=== PATIENT | female | born 1980 | race Caucasian/White ===

== ENCOUNTER → 2019-08-24 14:17 | Outpatient (ROUT) | payer OTHER, SELFPAY ==
[2019-08-24 14:33] LABS: Add Manual Diff / Slide Review NO; Basophils Absolute Auto 100 /uL (0-100); Basophils Percent Auto 0.4 % (0-2); Eosinophils Absolute Auto 200 /uL (0-450); Eosinophils Percent Auto 1.4 % (2-4); Hematocrit 30.7 % (36-46); Hemoglobin 10.7 g/dL (12.0-16.0); Lymphocytes Absolute Auto 1700 /uL (1100-4500); Lymphocytes Percent Auto 13.4 % (25-40); Mean Corpuscular Hemoglobin 31.4 PG (26-34); Mean Corpuscular Volume 89.8 fL (80-100); Monocytes Absolute Auto 1000 /uL (0-900); Monocytes Percent Auto 7.9 % (3-14); Neutrophils Absolute Auto 9600 /uL (1500-7000); Neutrophils Percent Auto 76.9 % (50-75); Platelet Count 186 X10^3/uL (150-400); Red Blood Cell Count 3.42 X10^6/uL (4.0-5.2); Red Cell Distribution Width 13.6 % (11.6-14.8); White Blood Cell Count 12.5 X10^3/uL (4.5-11.0)
[2019-08-24 14:41] LABS: HEMOLYSIS < 15 (0-50); Iron 69 ug/dL (37-170)
[2019-08-24 14:51] LABS: Percent Iron Saturation 14 % (15-50); Total Iron Binding Capacity 482 ug/dL (265-497); Transferrin 389 mg/dL (206-381)
[2019-08-24 15:19] LABS: Ferritin 16 ng/mL (6-137)
== END ==
PROVIDERS: Visit Provider Nurse Practitioner Obstetrics & Gynecology
DX: O09.513 Supervision of elderly primigravida, third trimester (principal)
CPT/HCPCS: 82728; 83540; 83550; 85025

== ENCOUNTER → 2019-09-19 14:32 | Outpatient (CLI) | payer OTHER, SELFPAY ==
--- NOTE | 2019-09-19 | DI.US.S_ITS ---
PROCEDURE: US OB LIMITED INDICATIONS: GROWTH AND BPP OUTSIDE/PRIOR DATING DATA: Last menstrual period (LMP): 01/11/19. LMP-based estimated date of delivery (NATALI): 10/18/19 . First dating scan (date and location): Unknown . Estimated date of delivery (NATALI) from first dating scan: Unknown . TECHNIQUE: Real-time scanning was performed of the fetus for biophysical profile, with image documentation. Color and pulse Doppler interrogation was also performed of the umbilical artery near its insertion into the placenta. Endovaginal scanning: Not performed COMPARISON: None. FINDINGS: General: A single living intrauterine gestation is present. Presentation: Vertex. Placenta: Placental position is anterior , without previa. Amniotic fluid index: 11.4 cm, normal range is 5-24 cm. heart rate: 124 beats per minute. Estimated gestational age from initial scan: Not applicable . Composite gestational age 35 weeks 4 days. Biparietal diameter measures 8.8 cm, 35 weeks 3 days Head circumference measures 32.4 cm, 36 weeks 5 days Abdominal circumference measures 31.1 cm, 35 weeks 0 days Femur length measures 6.8 cm, 34 weeks 6 days Biophysical profile: Tone: 2 points. Movement: 2 points. Respiration: 2 new points. Largest pocket of fluid: 2 points. IMPRESSION: Single living intrauterine fetus in vertex presentation. Composite gestational age measures 35 weeks 4 days , concordant with the reported LMP. Normal biophysical profile Normal YANE Dictated by: Jonathan Galvez M.D. on 09/20/2019 at 12:47 Approved by: Jonathan Galvez M.D. on 09/20/2019 at 12:51
== END ==
PROVIDERS: Referring Provider Nurse Practitioner Obstetrics & Gynecology; Visit Provider Nurse Practitioner Obstetrics & Gynecology
DX: Z36.89 Encounter for other specified antenatal screening (principal); Z3A.35 35 weeks gestation of pregnancy
CPT/HCPCS: 76815; 76819

== ENCOUNTER → 2019-09-22 12:08 | Outpatient (ROUT) | payer OTHER, SELFPAY | PROVIDERS: Visit Provider Nurse Practitioner Obstetrics & Gynecology | DX: Z34.90 Encounter for supervision of normal pregnancy, unspecified, unspecified trimester (principal); Z36.85 Encounter for antenatal screening for Streptococcus B; Z3A.36 36 weeks gestation of pregnancy | CPT/HCPCS: 87081 ==

== ENCOUNTER → 2019-10-04 14:35 | Outpatient (CLI) | payer OTHER, SELFPAY ==
--- NOTE | 2019-10-04 | DI.US.S_ITS ---
PROCEDURE: US OB LIMITED INDICATIONS: EFW OUTSIDE/PRIOR DATING DATA: Last menstrual period (LMP): 01/11/2019. LMP-based estimated date of delivery (NATALI): 10/18/2019 . First dating scan (date and location): 09/19/2019 . Estimated date of delivery (NATALI) from first dating scan: 10/20/2019 . TECHNIQUE: Real-time scanning was performed of the fetus, with image documentation and biometric measurements. Endovaginal scanning: No COMPARISON: [facility], OB LIMITED, 09/19/2019, 14:52. FINDINGS: General: A single living intrauterine gestation is present. Presentation: Vertex. Placenta: Placental position is anterior , without previa. << Amniotic fluid index: 6.3 cm, normal range is 5-24 cm. heart rate: 132 beats per minute. Maternal cervical canal: Not well seen. biometrics: Biparietal diameter: 37 weeks 1 day Head circumference: 38 weeks 2 days Abdominal circumference: 35 weeks 6 days Femur length: 36 weeks Estimated gestational age from initial scan: 37 weeks 5 days Composite gestational age from present scan: 36 weeks 6 days Estimated weight and percentile: 2902 g; 25th percentile Measurement variability for biometric dating: +/- 7 days from 14 weeks to 15 weeks 6 days gestation, +/- 10 days from 16 weeks to 21 weeks 6 days gestation, +/- 2 weeks from 22 weeks to 27 weeks 6 days gestation, +/- 3 weeks for 28 weeks gestation or later. weight reference: 4500 g or EFW >90/95% is considered macrosomia or large for gestational age. EFW <10% is small for gestational age. EFW 5% or less is considered intra-uterine growth restriction. Other: Biophysical profile score of 8 of 8 possible points with 2 points for tone, movement, respiration and largest amniotic fluid pocket. IMPRESSION: 1. Interval growth within normal limits. 2. Amniotic fluid index slightly less than the 5th percentile for age. 3. Normal biophysical profile . Dictated by: Jose Eduardo Sesay [facility] Interpreted: Fatoumata Barragan MD on 10/04/2019 at 16:18 Approved by: Fatoumata Barragan MD, PhD on 10/04/2019 at 17:22
== END ==
PROVIDERS: Referring Provider Nurse Practitioner Obstetrics & Gynecology; Visit Provider Nurse Practitioner Obstetrics & Gynecology
DX: Z36.89 Encounter for other specified antenatal screening (principal); Z3A.36 36 weeks gestation of pregnancy
CPT/HCPCS: 76815; 76819

== ENCOUNTER 2019-10-16 21:44 | Outpatient (CLI) | payer OTHER, SELFPAY ==
--- NOTE | 2019-10-16 21:48 | P.TNLD_ITS ---
Visit Information Visit Information Date of evaluation: 10/16/19 Primary OB Provider: Julieta Squires On-call OB Provider: Edna Cowart Reason for Evaluation: Yes rupture of membranes Comments/Additional reasons for admission: 39YO @ [id number] by LMP and early US presents for evaluation of PROM tonight @2030. Has continued to leak clear fluid. Mild, irregular contractions rated at 2/10. Lots of FM. Vital Signs Vital Signs: BP 118/68, HR-79, T97.1 [facility] Medical History (Updated 10/16/19 @ 22:10 by Julieta Squires CNM) 39 weeks gestation of (Acute) Elderly primigravida in third trimester (Inactive) Gestational diabetes, diet controlled (Inactive) Social History (Updated 10/16/19 @ 21:52 by Julieta Squires CNM) marital status: household members: spouse lives independently: Yes housing: house pets and animals: Yes education level: master's degree occupational status: employed current occupational exposures/hazards: No Review of Systems Review of Systems ROS: Yes All systems reviewed with the patient and are negative except as otherwise documented Exam Vital Signs (past 8 hours): See above Uterus Location (Fundal Height): 38 Presentation: vertex Amniotic Fluid: clear Evaluation Evaluation Baseline heart rate: 120 Variability: Moderate (11-25) monitor accelerations: Absent Contraction Frequency (minutes): 4 Uterine Contraction Intensity: Mild Category of Tracing: Reactive Non-invasive Membranes Rupture Test: positive Comments: CE deferred Diagnosis, Plan/Disposition Final Diagnosis (1) Elderly primigravida in third trimester: Status: Inactive (2) Gestational diabetes, diet controlled: Status: Inactive Problem details: Well controlled (3) 39 weeks gestation of : Status: Inactive (4) PROM (premature rupture of membranes): Status: Acute Problem details: Counseled on options for active vs expectant management of PROM. Pt elects 12 hours of expectant management. Will return no later than 0840 tomorrow morning, agreeable to labor augmentation if not in labor at that time. Reviewed warning sx and when to return sooner. COVID testing completed in anticipation of pending admission.
[2019-10-17 00:29] LABS: COVID19 -Nasal RAPID Negative (Negative)
[2019-10-17 05:38] VITALS: BP 118/68
== END 2019-10-16 22:30 | disposition home or self-care (01) ==
LOC: LABOR 22:02 → OB 10-18 11:06
PROVIDERS: Referring Provider Nurse Practitioner Obstetrics & Gynecology; Visit Provider Nurse Practitioner Obstetrics & Gynecology
DX: O24.410 Gestational diabetes mellitus in pregnancy, diet controlled (principal)
CPT/HCPCS: 59025; 84112; 87635; G0378; G0379

== ENCOUNTER 2019-10-17 08:55 | Inpatient (IN) | payer OTHER, SELFPAY ==
--- NOTE | 2019-10-17 09:11 | P.HPOB_ITS ---
OB HPI Date/Time Date of admission: 10/17/19 Date Patient Seen: 10/17/19 Time Patient Seen: 09:00 History of Present Condition Chief complaint: MATERNITY : 2 Para: 0 Estimated Date of Delivery: 10/18/19 Estimated Gestational Age (weeks): 39.6 Narrative: Lorene Willis is a 39 year old female @ [id number] by LMP and early US who presents for augmentation of labor/PROM. PROM occurred at 2030 last night for a moderate amount of clear fluid. She was seen in triage w/ ROM confirmed and RNST. Patient elected 12 hours of expectant management of labor. She contracted uncomfortably most of the night, but contractions eased this morning. Has had some bloody show and continues to leak clear fluid w/ good FM. Agreeable to pitocin augmentation. , Chelsea, is present and supportive. History of Present care: good care and pounds weight gain (27) Dating criteria: LMP confirmed by 1st trimester US Ultrasounds: normal mid trimester US Obstetrical complications: gestational diabetes (GDMA1) Medical complications: other (Advanced maternal age) Preadmission Labs Blood type: O (+) positive -: Antibody screen: negative, HBsAG: negative, HIV: negative and RPR/VDLR: negative -: Chlamydia screen: not detected and Gonorrhea screen: not detected -: Rubella: immune and Varicella: immune HCT: 30.7 HCAB: negative PAP: Normal Cell-free DNA: NT US normal, MsAFP-negative, cfDNA-negative/female 1 hr GTT: 170 3 hr GTT: 3 hr (80/227/215/185) Prior (ies) History: 01/11/2019:Early SAB, also LMP for current Evaluation Evaluation Baseline heart rate: 120 Variability: Moderate (11-25) monitor accelerations: Absent monitor decelerations: Absent Contraction Frequency (minutes): 15 Uterine Contraction Intensity: Mild Category of Tracing: Reactive Non-invasive Membranes Rupture Test: positive (10/16/19 @ 2200) [facility] Medical History 39 weeks gestation of (Acute) Elderly primigravida in third trimester (Inactive) Gestational diabetes, diet controlled (Inactive) Social History marital status: household members: spouse lives independently: Yes housing: house pets and animals: Yes education level: master's degree occupational status: employed current occupational exposures/hazards: No Meds Home Medications and Allergies Home Medications Medication Instructions Recorded Confirmed Type Multi 10/17/19 History ferrous sulfate [Slow Fe] mg PO 10/17/19 History Allergies Allergy/AdvReac Type Severity Reaction Status Date / Time No Known Drug Allergies Allergy Unverified 10/17/19 09:26 Review of Systems Review of Systems ROS: Yes All systems reviewed with the patient and are negative except as otherwise documented Exam Vital Signs (past 8 hours): BP 110/67, HR82, T36.4C Temporal Uterus Location (Fundal Height): 38 Presentation: vertex Estimated Weight (lbs): 6 Amniotic Fluid: clear Objective Labs Labs: CBC, T&S pending Assessment and Plan Assessment and Plan Assessment and Plan narrative: Admit, routine orders w/ CBC, T&S and begin pitocin agumentation. Labor support PRN. CE deferred as last CE in clinic was 1.5/70%/-3 and patient has since lost mucus plug and had bloody show w/ contractions and PROM. Will reassess in 4 hours and perform CE after 2 hours after strong contractions obtained. Will check random BGs minimally/as indicated since BGs have been well controlled throughout . Labor support PRN. Time Spent with Patient Total time spent with greater than 50% in coordination of care (as documented) at patient's floor/unit and/or counseling patient:: 25 - 35 minutes
[2019-10-17] MEDS: LACTATED RINGERS 1,000 ML 100 ML IV ×2 (09:55→19:12)
[2019-10-17 10:07] LABS: Add Manual Diff / Slide Review NO; Basophils Absolute Auto 0 /uL (0-100); Basophils Percent Auto 0.3 % (0-2); Eosinophils Absolute Auto 100 /uL (0-450); Eosinophils Percent Auto 0.7 % (2-4); Hematocrit 31.5 % (36-46); Hemoglobin 10.9 g/dL (12.0-16.0); Lymphocytes Absolute Auto 1300 /uL (1100-4500); Lymphocytes Percent Auto 7.9 % (25-40); Mean Corpuscular HGB Conc 34.7 % (30-36); Mean Corpuscular Hemoglobin 31.5 PG (26-34); Mean Corpuscular Volume 90.8 fL (80-100); Monocytes Absolute Auto 1200 /uL (0-900); Monocytes Percent Auto 7.3 % (3-14); Neutrophils Absolute Auto 13700 /uL (1500-7000); Neutrophils Percent Auto 83.8 % (50-75); Platelet Count 156 X10^3/uL (150-400); Red Blood Cell Count 3.47 X10^6/uL (4.0-5.2); Red Cell Distribution Width 14.6 % (11.6-14.8); White Blood Cell Count 16.3 X10^3/uL (4.5-11.0)
[2019-10-17] MEDS: OXYTOCIN PREMIX 30 UNIT/500 ML PLAST..BAG IV (10:09)
--- NOTE | 2019-10-17 14:02 | PM.OBPNLAB ---
Date/Time Date Patient Seen: 10/17/19 Time Patient Seen: 01:20 Pain Control Pain control: tolerating well Comments: Has been walking and on the ball to encourage labor progression w/ gradula increase in intensity of contractions. Now breathing through regular contractions, occasionally tearful, but coping well. States that contractions became strong around 1315. VSS, see OBIX. Pelvic Exam Amniotic membrane status: Leaking Comments: planned CE @ 1515 Contractions Contractions on admission: irregular Monitor mode: External Pitocin rate (mU/min): 8 Contraction frequency (min): 3 Contraction duration (min): 2 Contraction pattern: Regular Contraction intensity: Strong/Firm Status status: Category l Heart Rate Baseline: 125 Monitor Accelerations: Present Monitor Decelerations: Absent Monitor Variability: Moderate Assessment and Plan Assessment: active labor Plan: continuous present management Comments: Continuous labor support. 1st CE since PROM planned @ 1515. Encourage movement and frequent position changes.
--- NOTE | 2019-10-17 15:24 | PM.OBPNLAB ---
Date/Time Date Patient Seen: 10/17/19 Time Patient Seen: 15:25 Pain Control Pain control: tolerating well Comments: Patient laboring in the tub, breathing through strong contractions VSS, see OBIX. Pelvic Exam Dilation (cm): 4 Effacement (%): 80 station: 0 Amniotic membrane status: Leaking Contractions Contractions on admission: irregular Monitor mode: External Pitocin rate (mU/min): 7 Contraction frequency (min): 3 Contraction duration (min): 1 Contraction pattern: Regular Contraction intensity: Strong/Firm Status status: Category l Heart Rate Baseline: 120 Monitor Accelerations: Present Monitor Decelerations: Variable Monitor Variability: Moderate Comments: poor continuity of FHR tracing d/t maternal positions. RN frequently adjusting monitor. FHR reassuring when tracing well. Assessment and Plan Assessment: active labor Plan: continuous present management Comments: Continue pitocin titration to adequate ctx pattern. Labor support PRN. Reassess in 4 hours or sooner, PRN
--- NOTE | 2019-10-17 18:25 | P.PCNOB_ITS ---
Events: Gestational Diabetes (GDMA1) and Premature Rupture of Membrane (PROM <24 hours) Labor & Delivery Delivery date: 10/17/19 Cervical ripening method: none Induction method: none Delivery augmentation: pitocin Delivery monitor: external uterine and internal FHT Route of delivery: vacuum extraction Indication for instrumentation: nonreassuring FHR tracing L&D Laceration Description: Perineal - 1st Degree Delivery repair: chromic (3.0) Estimated blood loss (mL): 200 Anesthesia type: Other (Nitrous Oxide) Narrative: Patient progressed rapidly from 7cm to complete w/ spontaneous urge to push. FSE was applied. FHR w/ low baseline and recurrent decelerations to 70's w/ pushing that did not improve w/ position changes, pitocin off, O2@10L/NRB mask and 400mL IVFB. Patient made good progress w/ steady descent of vertex. was consulted for VAVB for NRFHT. FSE was removed. Successful VAVB after 2 pop offs. placed on maternal abdomen for drying and stimulation. Apgars 8/9. Pitocin was started at 300mL/hr for AMTSL. After cessation of pulsation, the cord was double clamped by CNM and cut by FOB. Hospital cord blood sample was collected. Gentle cord traction and single ma ternal push led to spontaneous, Schultze delivery of an apparently intact placenta, membranes and 3VC. Fundus immediately firm and bleeding minimal. Small 1st degree perineal laceration was repaired under 1% lidocaine local w/ 3.0 Chromic in the usual fashion. QBL 200mL. Both mother and baby stable and skin to skin as I left the room. Baby 1: gender: Female Presentation: vertex position: Right Occiput Anterior Placenta delivery description: Spontaneous cord vessel description: 3 Vessels (loose NC x1) score (1 min): 8 score (5 min): 9 Plan for aftercare: Routine PP orders. Anticipate d/c to home in 18-24 hours.
[2019-10-17] MEDS: KETOROLAC 30 MG/ML VIAL IV (20:00)
[2019-10-17] MEDS: ACETAMINOPHEN 325 MG TABLET 650 MG PO (21:08)
[2019-10-17 21:43] VITALS: BP 105/70
[2019-10-18] MEDS: LANOLIN OINT 7 GM 1 APPLIC TOP (08:12)
[2019-10-18] MEDS: FERROUS GLUCONATE 324 MG TABLET PO (08:13)
[2019-10-18] MEDS: DOCUSATE 100 MG CAPSULE PO (08:13)
[2019-10-18] MEDS: PRENATAL VIT,CALC/IRON/FOLIC 1 TABLET 1 TAB PO (08:13)
--- NOTE | 2019-10-18 13:16 | PM.OBDS.1 ---
Discharge Providers Provider Date of admission: 10/17/19 08:55 Discharge Date: 10/18/19 Primary care physician: Julieta Squires CNM Consults: 10/18/19 18:22 Consult to Fabrication And Assembly Supervisor Routine Comment: Discharge provider: Julieta Squires CNM Summary Discharge Diagnosis (1) First degree perineal laceration during delivery: Status: Acute Problem Details: Routine care Time Spent with Patient Time attestation: Total time spent providing and/or coordinating discharge services: Objective Labs Result Diagrams: 10/17/19 09:50 Exam Vital Signs (past 8 hours): HR 94bpm, BP125/55, RR16/min, T98.8F Other: Fundus firm @ u-1, lochia light, no clots Discharge Plan Discharge Plan Patient Disposition: Home Discharge orders & Medications Prescriptions: New docusate sodium [DOK] 100 mg Capsule 100 mg PO DAILY 14 Days Qty: 20 RF: 0 acetaminophen 325 mg Tablet 650 mg PO Q6HR PRN (Reason: Pain, Mild (1-3)) 14 Days Qty: 60 RF: 2 ibuprofen 600 mg Tablet 600 mg PO Q6HR PRN (Reason: Pain, Mild (1-3)) 14 Days Qty: 60 RF: 2 Continued Slow Fe 142 mg (45 mg iron) tablet extended release PO RF: 0 Multi 1 tablet RF: 0 Follow up/Referrals: Julieta Squires CNM [Advanced Alterations Expert] - (Follow-up with Julieta as scheduled) Diet/Activity/Treatments Diet: Diet as Tolerated and Regular Activity: Pelvic rest x 6 weeks Skin/Wound/Dressing Care Report to your healthcare provider any signs of infection, such as:: chills, fever, increased pain, unusual drainage and unusual redness Visit Report/Discharge Packet Instructions: DI for Depression
[2019-10-18 14:39] VITALS: BP 99/55; PULSE 94; RESP 16; TEMP 37.1
== END 2019-10-18 18:15 | disposition home or self-care (01) | DRG 807 ==
PROVIDERS: Admitting Provider Nurse Practitioner Obstetrics & Gynecology; Referring Provider Nurse Practitioner Obstetrics & Gynecology; Visit Provider Nurse Practitioner Obstetrics & Gynecology
DX: O24.420 Gestational diabetes mellitus in childbirth, diet controlled (principal); Z37.0 Single live birth; Z3A.39 39 weeks gestation of pregnancy; O70.0 First degree perineal laceration during delivery; O42.02 Full-term premature rupture of membranes, onset of labor within 24 hours of rupture; O76 Abnormality in fetal heart rate and rhythm complicating labor and delivery
CPT/HCPCS: 59050; 85025; 86850; 86900; 86901; G0379; J1885; J2590